=== PATIENT | female | born 1980 | race Caucasian/White ===

== ENCOUNTER 2019-02-17 08:00 | Observation (INO) | payer BC ==
[2019-02-15 15:28] VITALS: BMI 18.3
[2019-02-17] MEDS ORDERED: Lactated Ringer's 1,000 ML IV ONE ×3 (08:34→14:00)
[2019-02-17 08:39] LABS: MEAN CELL VOLUME 90.6 fl (81.0-99.0); MEAN CORPUSCULAR HGB CONC 33.1 g/dL (33.0-37.0); RBC 4.66 Mil/uL (3.80-5.20); RED CELL DISTRIBUTION WIDTH 12.8 % (11.5-14.5); WHITE BLOOD COUNT 4.6 K/uL (4.8-10.8)
[2019-02-17] MEDS ORDERED: ePHEDrine 50 mg/ml Inj ONE (10:34)
[2019-02-17] MEDS ORDERED: Propofol 10 mg/ml Inj (20 ML) ONE (10:35)
[2019-02-17] MEDS ORDERED: Lidocaine 4% (Laryng-O-Jet) Kit MM ONE (10:36)
[2019-02-17] MEDS ORDERED: Succinylcholine Chloride 20 mg/ml Syr (5 ml) IV ONE (10:36)
[2019-02-17] MEDS ORDERED: Rocuronium 10 mg/ml (5 ml) ONE ×2 (10:36→12:51)
[2019-02-17] MEDS ORDERED: Midazolam 2 MG/2 ML VIAL ONE (10:36)
[2019-02-17] MEDS: Bupivacaine 0.5% Inj(30mL) ONE ×2 (11:36→11:52)
[2019-02-17] MEDS ORDERED: Dexamethasone 4 mg/1 ml ONE (11:45)
[2019-02-17] MEDS ORDERED: Desflurane Inhalation Anesthetic Liq (240 ml) ONE (12:41)
[2019-02-17] MEDS ORDERED: Neostigmine 1:1000 (1 mg/ml) Inj ONE (13:22)
[2019-02-17] MEDS ORDERED: Oxycodone/Acetaminophen 5/325 mg Tab PO PRN (13:53)
[2019-02-17] MEDS ORDERED: HYDROmorphone 0.5 mg/0.5 ml ISec IVP PRN (13:53)
[2019-02-17] MEDS ORDERED: Lactated Ringer's 1,000 ML IV SCH (14:00)
[2019-02-17] MEDS ORDERED: HYDROmorphone 0.5 mg/0.5 ml ISec ONE (14:14)
[2019-02-17] MEDS: HYDROmorphone 0.5 mg/0.5 ml ISec IVP PRN ×2 (14:15→14:45)
--- NOTE | 2019-02-17 14:19 | OP ---
PROCEDURE DATE: 02/17/2019 SURGEON: Pastor Ayala MD SYSTEMS TEST TECHNICIAN: Sterling Poole MD ANESTHESIOLOGIST: Paola Grewal MD TYPE OF ANESTHESIA: General endotracheal. PREOPERATIVE DIAGNOSES: 1. Incapacitating pelvic pain. 2. Incapacitating abdominal pain. 3. Abnormal uterine bleeding. 4. History of pelvic endometriosis. 5. History of previously failed medical and surgical therapy. 6. Gastrointestinal and genitourinary symptoms. 7. Rule out interstitial cystitis. 8. History of severe endometriosis and pelvic adhesions POSTOPERATIVE DIAGNOSES: 1. Incapacitating pelvic pain. 2. Incapacitating abdominal pain. 3. Abnormal uterine bleeding. 4. History of pelvic endometriosis. 5. History of previously failed medical and surgical therapy. 6. History of severe endometriosis and pelvic adhesions. 7. Gastrointestinal and genitourinary symptoms. 8. left ovarian endometrioma 9. Mild ureteral distention. PROCEDURES PERFORMED: 1. Exam under anesthesia. 2. Video assisted hysteroscopy. 3. Cystoscopy. 4. Bilateral ureteral catheterization and injection of IC-Green dye. 5. Robotic da Cain operative laparoscopy. 6. Treatment of endometriosis. 7. Excision of endometriosis. 8. Bilateral ureterolysis. 9. Bilateral ovariolysis. 10: left ovarian cystectomy 11. left salpingectomy dr lara appendectomy and excision of bowel endometriosis will dictate separately COMPLICATIONS: None. SAMPLES SENT: 1. Left Uterosacral l endometriosis. 2. Left periureteral endometriosis. 3. Right periureteral endometriosis. 4. Right uterosacral endometriosis. 5. Left and right ovarian fossa endometriosis. 6. Iliac endometriosis. 7. Posterior cervical endometriosis. 8. Rectal endometriosis, anterior. 9) Cul de sac endometriosis 10.left ovarian cyst 11.appendix INDICATION FOR THE PROCEDURE AND CONSENT: The patient had a long history of pelvic pain, dysmenorrhea, dyspareunia, abdominal pain, and bladder pain. The patient had been thoroughly evaluated and counseled regarding the pros and cons of the procedure, the reasonable alternatives, and possible complications. She understood and accepted the risks involved. Literature was provided to the patient. The patient was understanding and given her history and per surgical exam, she was at high risk in an average patient. She accepted all the risks involved, and all the questions had been answered to her satisfaction. FINDINGS OF SURGERY: Genitalia: Normal external genitalia, cervix without lesion and polyps. Hysteroscopy: Hysteroscopy shows a clear uterine cavity with no polyps or masses noticed. Cystoscopy: The cystoscopy was performed to rule out endometriosis and also any interstitial cystitis and also injury. The bladder was normal with no evidence of stone, trigonitis, or cystitis. A positive jet flow was identified in both ureters. Laparoscopy: The upper abdomen appeared to be normal. Gallbladder was normal. Liver edges appeared to be normal. Ascending colon and transverse were normal. There was evidence of adhesions, fibrosis, and endometriosis of the rectovaginal and pelvic sidewalls. The appendix appeared to be indurated .Right fallopian tubes appeared to be patent, the left tube was encased in a complex mass and contained endometriosis. the left ovary was severely adherent to the bowel and to the posterior aspect of the uterus. there were endometrial implants on the pelvic sidewall .. There was also evidence of mild hydroureters. DESCRIPTION OF THE PROCEDURE: Initiation of the case: After adequate anesthesia was obtained, the patient was placed in the dorsal lithotomy position, and with extreme care, placement of the patient with hyperextension and hyperflexing of the hips. At this point, the patient was prepped and draped. The surgeon was gowned and gloved. A timeout was taken according to the hospital procedure and the procedure was started. At this point, we performed cystoscopy, bilateral ureteral catheterization. A cystoscope was inserted into the bladder under direct visualization and the bladder was visualized. The bladder was free of lesions and tumors. There was no evidence of interstitial cystitis, and there was only mild amount of trigonitis. At this point, both ureters were identified and appeared to be in their normal anatomical position. At this point, utilizing an open 5-Guyanese open-ended catheter, the left ureter was catheterized all the way to the distal ureter, and 5 mL of IC-Green was injected into this ureter. Similarly, the contralateral ureter was catheterized all the way to the distal ureter, and 5 mL of IC-Green was injected into the distal ureter. At this point, the stents were removed, and the cystoscope was removed, and the 16-Guyanese [place] was inserted into the bladder. At this point, we proceeded with a hysteroscopy. A speculum was placed into vagina, and the anterior lip of the cervix was grasped. The cervix was dilated, and a hysteroscope was inserted into the cavity. The cavity appeared to be of normal size with no evidence of polyps, cysts, adenomyosis, or fibroids. At this point, we proceeded with placement of a trocar and docking of the da Cain Xi robot. The surgeon was re-gowned and gloved, and open laparoscopy was performed by making incision in the umbilicus and the fascia was incised. The peritoneum was entered in a blunt fashion, and the cannula was inserted under direct visualization. The abdomen was insufflated, and under direct visualization, three additional ports were inserted in the left upper quadrant, left mid quadrant, and right upper quadrant. At this point, the da Cain Xi robot was brought into the field and docked, and the instruments were inserted under direct visualization. All this with extreme care not to injure the bowel or another area. As per dictation, the upper abdomen appeared to be normal with no evidence of any lesions. At this point, we proceeded with a left ureterolysis. The ureter appeared to be dilated and was clearly identified utilizing IC-Green fluorescent technology. Anesthesia was made in the peritoneum at the top of the pelvic brim, and the incision was then carried down all the way opening the peritoneum all the way down from the pelvic brim, all the way down to the ovarian fossa, extending the incision below the ovary. It was a progressive dissection where the ureter was progressively lateralized and peritoneum was medialized, thus freeing the ureter all the way down to the cross of the uterine vessels. After this was done, the ureter was freed and lateralized, and a larger peritoneum which had been opened, was excised, and sent to pathology. At this point, with the aid of very slow process, I was able to elevate the ovary and proceed with ovariolysis. At this point, we proceeded with a left ovariolysis. The left ovary was adherent to the posterior aspect of the uterus. It was gently dissected in a step by step way. It was peeled off, the ovarian fossa, andan area of extensive fibrosis and endometriosis was exposed. At this point we performed the left ovarian cystectomy the left ovary was elevated and the endometrioma was excised without damaging the ovary. At this point we performed the left salpingectomy the left tube was encased in a complex mass and contained endometriosis. it was elevated and excsised without damaging the ovary. At this point, we proceeded with a right ureterolysis. The ureter was identified again utilizing fluorescent technology on the right hand side and retroperitoneal space was entered, and a full dissection was performed,entering the retroperitoneal space and dissecting the ureter, removing the ureter laterally and the peritoneum medially. A full dissection was performed all the way down to the ovarian fossa and the crossing of the uterine arteries. An area of peritoneum containing endometriosis was dissected and sent to Pathology. At this point, we proceeded with a right ovariolysis. The right ovary was adherent to the peritoneum. It was gently elevated progressively, and dissected off from the peritoneal area. All this done with extreme care to preserve vascularization to the ovary. At this point, we proceeded with treatment of endometriosis and excision of endometriosis. On the left hand side, fibrosis, especially in the left ovarian fossa was excised. In a very progressive step by step fashion, we dissected off fibrosis containing endometriosis and freed up the whole area. The ureters which had been lateralized. Areas of fibrosis and endometriosis were also identified in the posterior cul-de-sac and in the rectovaginal space which was also affected with endometriosis and fibrosis. At this point, we proceeded with the excision of perirectal endometriosis. The rectovaginal area had significant fibrosis and additional endometriosis was dissected from the posterior aspect of the uterus, and the rectovaginal space was entered at the level of the peritoneal reflection. All this done making sure that no damage to the rectum was performed. At this point, endometriosis was also excised from the right uterosacral area which also was affected by fibrosis and endometriosis. At this point, it was checked for hemostasis and appeared to be excellent. Both fallopian tubes were in good condition and patent. At this point the console was handed over to Dr. Poole from General surgery who proceeded with the appendectomy and excision of bowel endometriosis procedure. He will dictate that separately. After he was done we checked for hemostasis and organ integrity and all was normal. At this point, the da Cain Xi robot was removed. The abdomen was desufflated, and the incisions were closed in layers with 0 PDS for the fascia and 4-0 Monocryl for the skin. At the end of the procedure, all tips and instrument counts were correct. The patient tolerated the procedure well and was taken to the recovery room in excellent condition. Lucy PARSONS, Pastor PATEL
[2019-02-17] MEDS: Lactated Ringer's 1,000 ML IV SCH (20:06)
[2019-02-18 00:58] VITALS: RESP 18
[2019-02-18 05:04] VITALS: O2SAT 98
[2019-02-18] MEDS: Lactated Ringer's 1,000 ML IV SCH (07:24)
--- NOTE | 2019-02-18 08:21 | CP.PCM.PN ---
Subjective - Date & Time of Evaluation Date of Evaluation: 02/18/19 Time of Evaluation: 08:19 - Subjective Subjective: Patient states she has moderate abdominal pain. She has been out of bed and walked around floor. +void this am. Denies CP/SOB/dizziness. Objective - Vital Signs/Intake and Output Vital Signs (last 24 hours): Temp Pulse Resp BP Pulse Ox 100 F H 67 18 97/72 L 98 02/18/19 05:00 02/18/19 05:00 02/18/19 05:00 02/18/19 05:00 02/18/19 05:00 Intake and Output: 02/18/19 02/18/19 06:59 18:59 Intake Total 1500 Output Total 300 Balance 1200 - Medications Medications: Current Medications Hydromorphone HCl (Dilaudid) 0.5 mg IVP Q3H PRN PRN Reason: Pain, severe (8-10) Hydromorphone HCl (Dilaudid) 0.5 mg IVP Q5M PRN PRN Reason: Pain, moderate (4-7) Last Admin: 02/17/19 14:45 Dose: 0.5 mg Lactated Ringer's (Lactated Ringer's) 1,000 mls @ 125 mls/hr IV .Q8H EZE Last Admin: 02/18/19 07:24 Dose: 125 mls/hr Ketorolac Tromethamine (Toradol) 30 mg IVP Q6H [facility] Last Admin: 02/18/19 08:02 Dose: 30 mg Ondansetron HCl (Zofran Inj) 4 mg IVP Q6 PRN PRN Reason: Nausea/Vomiting Oxycodone/Acetaminophen (Percocet 5/325 Mg Tab) 1 tab PO Q4H PRN PRN Reason: Pain, moderate (4-7) Stop: 02/20/19 13:54 Last Admin: 02/18/19 05:28 Dose: 1 tab - Labs Labs: 02/17/19 08:20 - GI/Abdominal Exam GI & Abdominal Exam: Soft, Tenderness, Normal Bowel Sounds Assessment and Plan (1) Endometriosis Assessment & Plan: POD# 1 s/p laparoscopic excision of endometriosis -for d/c home today -colace, percocet (patient received rx from Dr. Ayala) -encourage OOB -f/u 7-10 days call for appt -d/w Dr. Ayala, agrees with above Status: Acute
[2019-02-18] MEDS ORDERED: BIFIDOBACTERIUM INFANTIS PO SCH (09:00)
[2019-02-18] MEDS ORDERED: Cholecalciferol 1,000 INTLU TAB PO SCH (09:00)
[2019-02-18 14:03] VITALS: BP 92/53; PULSE 55; TEMP 98.4
--- NOTE | 2019-02-24 12:10 | OP ---
OPERATIVE REPORT -Operative Report Date of Procedure: 02/17/2019 Surgeon: Sterling Poole MD Cherry Cutter: Pastor Ayala MD Anesthesiologist: Uri Guevara MD Anesthesia: General Endo Pre-op Diagnosis: abdominal pain Post-op Diagnosis: same Procedure/Operation Description: Operative Findings: as above Procedure/Operation Description: 1-Excision rectal endometriosis . 2- Appendectomy. Brief History: This 38 year old woman was already brought to the operating room by Dr. Ayala and intraoperative surgical consultation was requested for intestinal involvement. Description of the Procedure: The patient was already brought to the operating room by Dr. Ayala (separate dictation). After taking control of the robotic console the rectal lesions were examined under videoscopy and with electrocautery the first, most proximal lesion was incised circumferentially with electrocautery and with blunt and sharp dissection was excise en-bloc and sent to pathology for analysis. The second lesion was excised in a similar manner and also sent to pathology separately. The appendix was retracted anteriorly and the mesentery was desiccated with electrocautery to the base. The base was looped with 3-0 vicryl and transected and sent to pathology separately. The operation was then turned back to Dr. Ayala (separate dictation). Estimated Blood Loss:___ cc Complications: none Discharge & Condition: stable MTDD
== END 2019-02-18 10:00 | disposition home or self-care (01) ==
LOC: H.OPSURG 08:00 → H.PEDS 14:44
PROVIDERS: ADMIT Obstetrics & Gynecology Reproductive Endocrinology; ATTEND Obstetrics & Gynecology Reproductive Endocrinology
DX: N80.0 Endometriosis of uterus (principal); N80.1 Endometriosis of ovary; N80.2 Endometriosis of fallopian tube; N80.3 Endometriosis of pelvic peritoneum; N80.5 Endometriosis of intestine; N83.292 Other ovarian cyst, left side; N73.6 Female pelvic peritoneal adhesions (postinfective); N93.9 Abnormal uterine and vaginal bleeding, unspecified
CPT/HCPCS: 36415; 44970; 52005; 58661; 58662; 85027; 86850; 86900; 88302; 88305; 96374; 96376; C1729; G0378; J0690; J1100; J1170; J1885; J2001; J2250; J2405; J2704; J2710; J3010; J7030; J7120; S2900